=== PATIENT | male | born 1975 | race Caucasian/White ===

== ENCOUNTER → 2016-12-23 | Outpatient (CLI) | payer BC ==
[~2016-12-23] MED LIST: ANTIVERT/2525 MG PO; ASPIRIN81 M1 PO; DAYPRO600 M1 PO; NAPROSYN500 MG PO; NKHM; NORCO 325 MG-51 TAB PO; PARAFON FORTE500 MG PO; PROTONIX TR40 MG PO; SKELAXIN800 MG PO
== END | disposition home or self-care (01) ==
LOC: RAD 10:44
DX: J45.909 Unspecified asthma, uncomplicated (principal)

== ENCOUNTER 2017-12-14 10:20 | Emergency (ER) | payer BC ==
[~2017-12-14] VITALS: Wt 90.7 kg
[2017-12-14] MEDS ORDERED: SIMVASTATIN20 MG PO (10:36)
== END 2017-12-14 11:09 | disposition home or self-care (01) ==
LOC: ED 10:20
DX: M25.512 Pain in left shoulder (principal); J45.909 Unspecified asthma, uncomplicated; Z79.82 Long term (current) use of aspirin; Z79.899 Other long term (current) drug therapy; X50.1XXA Overexertion from prolonged static or awkward postures, initial encounter; Y93.89 Activity, other specified; Y92.69 Other specified industrial and construction area as the place of occurrence of the external cause; Y99.9 Unspecified external cause status

== ENCOUNTER → 2019-01-08 | Outpatient (CLI) | payer BC ==
[~2019-01-08] MED LIST changes: +CYCLOBENZAPRINE10 MG PO; +NITROSTAT0.3 M1 SL; +PROAIR HFA8.5 GM INH; +SIMVASTATIN20 MG PO; +TYLENOL325 M1 PO; +VITAMIN D32000 UNIT PO
--- NOTE | ~2019-01-08 | ST ---
[place], [place] EXERCISE STRESS TEST REPORT NAME: [facility] #: [id number] UNIT #: [id number] ROOM: DOCTOR: SCOT NORIEGA MD BIRTHDATE: [birth year] DOS: 01/08/2019 EXERCISE STRESS TEST REASON FOR TESTING: Atypical chest pain. Baseline EKG, normal sinus rhythm, normal EKG. IMPRESSION: Exercise test performed using the [place] protocol. EKG portion of the test was normal. No ischemic ST-T changes noted. No significant dysrhythmia during stress test. No stress test associated chest pain noted. There was an appropriate blood pressure and heart rate response to exercise above average functional capacity and attained 13 METs. Farias treadmill score was 12, suggestive of low mortality risk. No prior tests available for comparison. Scot Noriega MD CM:STRESS:EXERCISE STRESS TEST REPORT [id number] SCOT NORIEGA MD
--- NOTE | 2019-01-08 09:00 | NUR ---
INFORMED CONSENT OBTAINED FOR STANDARD GXT WITH DR. NORIEGA. RESTING EKG NSR WITH A SUPINE HR OF 81 WITH BP OF 124/78 AND HR OF 82 WITH BP OF 120/74 IN STANDING POSITION. PT COMPLETED 12:00 OF A CARIE PROTOCOL WITH COMPLETION OF STAGE IV AT 4.2 MPH AND 16% GRADE. REACHED A PEAK HR OF 163 WHICH IS 93% OF PREDICTED MAX WITH A PEAK BP OF 152/80. TEST TERMINATED BECAUSE OF FATIGUE. HAD NO CHEST PAIN OR ANY EKG CHANGES. HAS A HIGH EXERCISE TOLERANCE. NEGATIVE STANDARD GXT. LAST RECOVERY HR OF 110 WITH BP 120/80. DISCHARGED IN STABLE CONDITION.
== END | disposition home or self-care (01) ==
LOC: CARD 01-04 09:00
DX: R07.9 Chest pain, unspecified (principal); I10 Essential (primary) hypertension

== ENCOUNTER → 2019-07-26 | Outpatient (CLI) | payer BC | END | disposition home or self-care (01) | LOC: RAD 08:38 | DX: R06.02 Shortness of breath (principal); J45.909 Unspecified asthma, uncomplicated ==

== ENCOUNTER → 2019-09-20 | Outpatient (CLI) | payer BC | END | disposition home or self-care (01) | LOC: CARD 09-02 15:00 | DX: R06.02 Shortness of breath (principal) ==

== ENCOUNTER → 2020-01-27 | Outpatient (CLI) | payer BC ==
[2020-01-27 12:14] LABS: BASO # 0.1 10*3/uL (0.0-0.1); BASO % 0.4 % (0.0-1.0); EOS # 0.2 10*3/uL (0.0-0.4); EOS % 1.4 % (1.0-4.0); HEMATOCRIT 45.4 % (42.0-52.0); LYMPH # 1.6 10*3/uL (1.3-4.4); LYMPH % 12.8 % (27.0-41.0); MEAN CELL VOLUME 85.3 fl (80.0-94.0); MEAN CORPUSCULAR HGB 27.3 pg (27.0-31.0); MEAN CORPUSCULAR HGB CONC 31.9 g/dl (33.0-37.0); MEAN PLATELET VOLUME 10.2 fl (9.6-12.3); MONO # 1.1 10*3/uL (0.1-1.0); MONO % 8.5 % (3.0-9.0); NEUT # 9.7 10*3/uL (2.3-7.9); NEUT % 76.6 % (47.0-73.0); PLATELET COUNT AUTOMATED 255 10*3/uL (130-400); RED BLOOD COUNT 5.32 10*6/uL (4.50-5.90); RED CELL DISTRI WIDTH 13.6 % (0-14.5); WHITE BLOOD COUNT 12.6 10*3/uL (4.8-10.8)
== END ==
LOC: LAB 11:45
PROVIDERS: Family Medicine
DX: M25.461 Effusion, right knee (principal)

== ENCOUNTER → 2021-05-07 | Outpatient (CLI) | payer BC | END | disposition home or self-care (01) | LOC: US 05-03 15:00 | PROVIDERS: ATTEND Family Medicine | DX: R59.0 Localized enlarged lymph nodes (principal) ==

== ENCOUNTER → 2022-08-28 | Outpatient (CLI) | payer BC ==
[~2022-08-28] MED LIST changes: +LIPITOR20 MG PO
== END | disposition home or self-care (01) ==
LOC: CARD 04:16
PROVIDERS: ATTEND Family Medicine
DX: R07.2 Precordial pain (principal)

== ENCOUNTER → 2023-06-07 | Outpatient (CLI) | payer BC ==
[~2023-06-07] MED LIST changes: +ASPIRIN ADULT L81 M1 PO; +TOPROL XL25 MG PO; +TYLENOL EXTRA500 MG PO
[2023-06-07 10:21] LABS: TOTAL PROTEIN 6.9 gm/dL (6.0-8.0)
[2023-06-09 13:06] LABS: ANTI-DSDNA ANTIBODIES 13 IU/mL (0-9); ANTI-RNP ANTIBODIES 0.2 AI (0.0-0.9); ANTICHROMATIN ANTIBODIES <0.2 AI (0.0-0.9); ANTISCLERODERMA-70 AB <0.2 AI (0.0-0.9); SJOGREN ANTI-SS-A <0.2 AI (0.0-0.9); SJOREN AB, ANTI-SS-B <0.2 AI (0.0-0.9)
== END | disposition home or self-care (01) ==
LOC: LAB 00:08
PROVIDERS: ATTEND Student in an Organized Health Care Education/Training Program
DX: M19.90 Unspecified osteoarthritis, unspecified site (principal); R74.01 Elevation of levels of liver transaminase levels

== ENCOUNTER → 2023-06-10 | Outpatient (CLI) | payer BC | END | disposition home or self-care (01) | LOC: US 03:22 | PROVIDERS: ATTEND Student in an Organized Health Care Education/Training Program | DX: R16.2 Hepatomegaly with splenomegaly, not elsewhere classified (principal); R74.01 Elevation of levels of liver transaminase levels; K76.0 Fatty (change of) liver, not elsewhere classified ==

== ENCOUNTER → 2023-11-14 | Outpatient (CLI) | payer BC ==
[2023-11-14 08:55] LABS: BASO # 0.1 10*3/uL (0.0-0.1); BASO % 0.8 % (0.0-1.0); BILIRUBIN Negative (Negative); BLOOD Negative (Negative); CLARITY Clear (Clear); COLOR Yellow (Yellow); EOS # 0.2 10*3/uL (0.0-0.4); EOS % 3.3 % (1.0-4.0); GLUCOSE Negative (Negative); HEMATOCRIT 48.4 % (42.0-52.0); KETONE Negative (Negative); LEUKO ESTERASE Negative (Negative); LYMPH # 1.7 10*3/uL (1.3-4.4); MEAN CELL VOLUME 83.2 fl (80.0-94.0); MEAN CORPUSCULAR HGB 27.3 pg (27.0-31.0); MEAN CORPUSCULAR HGB CONC 32.9 g/dl (33.0-37.0); MEAN PLATELET VOLUME 9.7 fl (9.6-12.3); MONO # 0.6 10*3/uL (0.1-1.0); MONO % 9.4 % (3.0-9.0); NEUT # 3.8 10*3/uL (2.3-7.9); NEUT % 59.3 % (47.0-73.0); NITRITE Negative (Negative); PH 6.5 (4.5-8.0); PLATELET COUNT AUTOMATED 252 10*3/uL (130-400); RED BLOOD COUNT 5.82 10*6/uL (4.50-5.90); RED CELL DISTRI WIDTH 13.4 % (0-14.5); UROBILINOGEN 0.2 E.U./dl (0.0-1.0); WHITE BLOOD COUNT 6.4 10*3/uL (4.8-10.8)
[2023-11-14 09:19] LABS: ALKALINE PHOSPHATASE 61 U/L (46-116); BUN 14 mg/dl (9-23); CHLORIDE 103 mmol/L (98-107); SGPT/ALT 83 U/L (5-49); TOTAL PROTEIN 7.2 gm/dL (6.0-8.0); WBC 0-2 wbc/hpf (0-5)
[2023-11-15 15:08] LABS: ANTI-SMOOTH MUSCLE ANTIBODY 3 Units (0-19)
[2023-11-17 14:07] LABS: ANTI-DSDNA ANTIBODIES 14 IU/mL (0-9); ANTI-RNP ANTIBODIES 0.2 AI (0.0-0.9)
== END | disposition home or self-care (01) ==
LOC: LAB 08:32
PROVIDERS: ATTEND Internal Medicine Rheumatology
DX: M17.0 Bilateral primary osteoarthritis of knee (principal); R76.8 Other specified abnormal immunological findings in serum; R74.01 Elevation of levels of liver transaminase levels; M25.862 Other specified joint disorders, left knee; M25.861 Other specified joint disorders, right knee

== ENCOUNTER 2024-06-15 20:24 | Emergency (ER) | payer BC ==
[~2024-06-15] VITALS: Ht 180.3 cm; Wt 93.0 kg
[2024-06-15 20:44] LABS: BASO # 0.1 10*3/uL (0.0-0.1); BASO % 0.6 % (0.0-1.0); EOS # 0.3 10*3/uL (0.0-0.4); EOS % 3.6 % (1.0-4.0); HEMATOCRIT 44.7 % (42.0-52.0); LYMPH # 2.6 10*3/uL (1.3-4.4); LYMPH % 31.1 % (27.0-41.0); MEAN CELL VOLUME 84.5 fl (80.0-94.0); MEAN CORPUSCULAR HGB 27.8 pg (27.0-31.0); MEAN CORPUSCULAR HGB CONC 32.9 g/dl (33.0-37.0); MEAN PLATELET VOLUME 9.9 fl (9.6-12.3); MONO # 0.7 10*3/uL (0.1-1.0); MONO % 8.2 % (3.0-9.0); NEUT # 4.7 10*3/uL (2.3-7.9); NEUT % 56.4 % (47.0-73.0); PLATELET COUNT AUTOMATED 233 10*3/uL (130-400); RED BLOOD COUNT 5.29 10*6/uL (4.50-5.90); RED CELL DISTRI WIDTH 13.9 % (0-14.5); WHITE BLOOD COUNT 8.4 10*3/uL (4.8-10.8)
[2024-06-15 20:59] LABS: ALKALINE PHOSPHATASE 72 U/L (46-116); BUN 14 mg/dl (9-23); CHLORIDE 105 mmol/L (98-107); POTASSIUM 3.9 mmol/L (3.4-5.1); SGPT/ALT 75 U/L (5-49); TOTAL PROTEIN 6.7 gm/dL (6.0-8.0)
== END 2024-06-15 23:28 | disposition home or self-care (01) ==
LOC: ED 20:24
PROVIDERS: Internal Medicine
DX: R07.89 Other chest pain (principal); R79.89 Other specified abnormal findings of blood chemistry; J45.909 Unspecified asthma, uncomplicated; Z95.5 Presence of coronary angioplasty implant and graft

== ENCOUNTER → 2024-11-06 | Outpatient (CLI) | payer BC | END | disposition home or self-care (01) | LOC: RAD 08:33 | PROVIDERS: ATTEND Family Medicine | DX: M54.50 Low back pain, unspecified (principal) ==

== ENCOUNTER → 2024-12-13 | Day surgery (SDC) | payer BC ==
[~2024-12-13] VITALS: Ht 182.8 cm; Wt 96.6 kg
[~2024-12-13] MED LIST changes: +LIPITOR10 MG PO; +Lactated Ringer's Solution 1,000 ML IV ONE; +Lactated Ringer's Solution 1,000 ML IV SCH; +Lidocaine Hydrochloride 2% 5 ML SDV IV ONE; +PROPOFOL 200 MG/20 ML VIAL IV ONE
[2024-12-13 07:05] VITALS: BP 141/86
[2024-12-13 07:58] VITALS: BP 116/70
[2024-12-13 08:03] VITALS: BP 118/79
[2024-12-13 08:18] VITALS: BP 134/88
== END | disposition home or self-care (01) ==
LOC: SDC 12-09 08:00
PROVIDERS: ATTEND Surgery
DX: Z12.11 Encounter for screening for malignant neoplasm of colon (principal); K57.30 Diverticulosis of large intestine without perforation or abscess without bleeding; I10 Essential (primary) hypertension; E78.00 Pure hypercholesterolemia, unspecified; Z85.828 Personal history of other malignant neoplasm of skin; J45.909 Unspecified asthma, uncomplicated; Z80.0 Family history of malignant neoplasm of digestive organs; Z79.899 Other long term (current) drug therapy; Z98.890 Other specified postprocedural states

== ENCOUNTER → 2025-02-28 | Outpatient (CLI) | payer BC ==
[~2025-02-28] MED LIST changes: -Lactated Ringer's Solution 1,000 ML IV ONE; -Lactated Ringer's Solution 1,000 ML IV SCH; -Lidocaine Hydrochloride 2% 5 ML SDV IV ONE; -PROPOFOL 200 MG/20 ML VIAL IV ONE
== END | disposition home or self-care (01) ==
LOC: CARD 09:20
PROVIDERS: ATTEND Internal Medicine Cardiovascular Disease
DX: I34.0 Nonrheumatic mitral (valve) insufficiency (principal); R55 Syncope and collapse; R07.89 Other chest pain; I25.10 Atherosclerotic heart disease of native coronary artery without angina pectoris

== ENCOUNTER → 2025-04-30 | Outpatient (CLI) | payer BC ==
[2025-04-30 10:19] LABS: BASO # 0.0 10*3/uL (0.0-0.1); BASO % 0.5 % (0.0-1.0); EOS # 0.3 10*3/uL (0.0-0.4); EOS % 4.1 % (1.0-4.0); MEAN CELL VOLUME 83.9 fl (80.0-94.0); MEAN CORPUSCULAR HGB 28.0 pg (27.0-31.0); MEAN PLATELET VOLUME 9.6 fl (9.6-12.3); MONO # 0.6 10*3/uL (0.1-1.0); MONO % 8.1 % (3.0-9.0); NEUT # 4.3 10*3/uL (2.3-7.9); NEUT % 58.4 % (47.0-73.0); NUCLEATED RED BLOOD CELL 0.0 % (0.0-0.0); NUCLEATED RED BLOOD CELL 0.0 10*3/uL (0.0-0.0); PLATELET COUNT AUTOMATED 283 10*3/uL (130-400); RED CELL DISTRI WIDTH 13.3 % (0-14.5)
[2025-04-30 10:41] LABS: BUN 10 mg/dl (9-23); SGPT/ALT 72 U/L (5-49)
[2025-05-01 10:06] LABS: ALPHA-1-ANTITRYPSIN, SERUM 158 mg/dL (101-187)
[2025-05-02 13:07] LABS: ANTI-SMOOTH MUSCLE ANTIBODY 3 Units (0-19)
== END | disposition home or self-care (01) ==
LOC: LAB 09:52
PROVIDERS: ATTEND Nurse Practitioner Family
DX: R74.8 Abnormal levels of other serum enzymes (principal); I25.10 Atherosclerotic heart disease of native coronary artery without angina pectoris

== ENCOUNTER → 2025-06-04 | Outpatient (CLI) | payer BC | END | disposition home or self-care (01) | LOC: RAD 08:45 | PROVIDERS: ATTEND Family Medicine | DX: M25.561 Pain in right knee (principal) ==